=== PATIENT | female | born 1930 | race Two or more races ===

== ENCOUNTER 2018-06-11 09:12 | Outpatient (CLI) | payer OTHER | END 2018-06-11 09:24 | disposition home or self-care (01) | LOC: TOM 09:12 | DX: D50.0 Iron deficiency anemia secondary to blood loss (chronic) (principal); R19.5 Other fecal abnormalities; K57.30 Diverticulosis of large intestine without perforation or abscess without bleeding; K80.80 Other cholelithiasis without obstruction ==